=== PATIENT | male | born 1945 | race Caucasian/White ===

== ENCOUNTER 2017-07-18 12:07 | Emergency (ER) | payer OTHER, MEDICARE ==
[~2017-07-18] VITALS: Ht 177.8 cm; Wt 88.5 kg
[2017-07-18 13:23] LABS: HEMATOCRIT 46.7 % (38.0-50.0); MCH 29.1 PG (29.0-34.0); MCHC 33.2 G/DL (30.0-36.0); MCV 87.8 FL (86-99); MEAN PLAT.VOLUME 9.9 uM^3 (9.0-12.4); PLATELET COUNT 241 K/uL (156-360); RBC DIS.WIDTH-CV 12.6 % (11.8-14.6); RBC DIS.WIDTH-SD 40.3 % (39-53); RED BLOOD COUNT 5.32 M/uL (4.00-5.50); WHITE BLOOD COUNT 6.9 K/uL (4.1-10.2)
[2017-07-18 13:28] LABS: CARBON DIOXIDE (BICARBONATE) 25.4 MEQ/L (20-31)
[2017-07-18 13:44] LABS: TROP-I INTERPRETATION NEGATIVE; TROPONIN-I < 0.01 ng/mL (0.0-0.30)
[2017-07-18 13:48] LABS: CHLORIDE 112 mEq/L (99-109); POTASSIUM 4.3 mEq/L (3.7-5.4); SODIUM 141 mEq/L (136-147)
[2017-07-18 13:49] LABS: GLUCOSE 99 mg/dL (70-99)
[2017-07-18 13:51] LABS: ANION GAP 10 MEQ/L (2-14)
[2017-07-18 13:53] LABS: GFR ESTIMATE (CALCULATED) > 59 mL/min/
[2017-07-18 13:54] LABS: UREA NITROGEN (BUN) 18 mg/dL (9-23)
[2017-07-18] MEDS ORDERED: PROVENTIL HFA6.7 GM IH (14:16)
[2017-07-18] MEDS ORDERED: PREDNISONE20 MG PO (14:16)
[2017-07-18] MEDS ORDERED: ZITHROMAX Z-PA250 MG PO (14:16)
[2017-07-18 14:30] VITALS: BP 141/72
== END 2017-07-18 14:32 | disposition home or self-care (01) ==
LOC: EME 12:07
PROVIDERS: Emergency Medicine
DX: R06.02 Shortness of breath (principal); J45.909 Unspecified asthma, uncomplicated; R05 Cough; Z87.891 Personal history of nicotine dependence
CPT/HCPCS: 71010; 80048; 82803; 83605; 83880; 84484; 85027; 87040; 93005; 94640; 99281; 99285